=== PATIENT | female | born 1940 | race Caucasian/White ===

== ENCOUNTER 2023-03-23 09:15 | Day surgery (SDC) | payer MEDICARE, BC ==
[2023-03-23] VITALS (7 sets, daily range): BP systolic 119–134; BP diastolic 44–76; PULSE 65–79; TEMP 97–97.4
[~2023-03-23] VITALS: Ht 160 cm; Wt 68.5 kg
[2023-03-23] MEDS ORDERED: ESTRACE0.1 MG/GM VG (10:12)
[2023-03-23] MEDS ORDERED: NORCO 325 MG-51 TAB PO (12:33)
[2023-03-23] MEDS ORDERED: CEPHALEXIN500 M1 PO (12:33)
--- NOTE | 2023-03-23 20:01 | NUR ---
[id number]: PT TO RECOVERY [facility] 6 FROM OR S/P L DISTAL RADIUS FX ORIF SLEEPY&COOPERATIVE, PLACED ON MONITOR, VSS ON RA RECEIVED REPORT AND ASSUMED CARE OF PT FROM JAYDON AND KEVIN SPLINT/YUNG WRAP, SLING TO LUE, WRIST - CDI. UNABLE TO MOVE OR FEEL LUE FOR DURATION OF VISIT - PT ED ON REUTRN OF SENSATION (AND PAIN) AFTER BLOCK WEARS OFF - VOICES UNDERSTANDING. ED ON RICE, SLING USE -VERBALIZES UNDERSTANDING SPOUSE CALLED EARLY IN DC PROCESS, ABOUT 90 MIN AWAY, DC HOME DELAYED UNTIL HIS ARRIVAL. PT WELL PALLIATED, HYDRATED AND FED TO SATISFACTION. ASSISTED TO BR AND BACK. IV DC'D EARLIER IN DC PROCESS. ORIGINAL PIV (RAC) HAD INFILTRATED PER REPORT - WARM BLANKETS APPLIED TO R UPPER ARM TO ASSIST REABSORPTION - PT ED ON SAME, ENCOURAGED TO CONTINUE AT HOME - VUI. ED ON SLING USE. PT HAS REMAINED A&O, NAD, VSS ON RA, TOLERATING PO, IS WITHOUT SIGNIFICANT COMPLAINT, WITH STEADY GAIT BY END OF STAY. ASSISTED IN PREPPING FOR DC/GETTING DRESSED. D/C INSTRUCTIONS, FOLLOW UP REVIEWED AND HANDED TO PT. ALL QUESTIONS AND CONCERNS ADDRESSED TO PT SATISFACTION. TAKEN TO EXIT VIA W/C WITH ALL BELONGINGS AND PAPERWORK IN HAND, ASSISTED INTO PASSENGER SEAT OF POV. SPOUSE TO DRIVE HOME.
== END 2023-03-23 15:50 | disposition home or self-care (01) ==
LOC: SDCO 09:15
DX: S52.502A Unspecified fracture of the lower end of left radius, initial encounter for closed fracture (principal); W19.XXXA Unspecified fall, initial encounter
CPT/HCPCS: C1713; C1776; J0690; J0737; J1100; J2250; J2704; J2795; J3010; J7120